=== PATIENT | male | born 1970 | race Caucasian/White ===

== ENCOUNTER 2019-04-22 10:36 | Inpatient (IN) | payer BC, OTHER ==
[~2019-04-22] VITALS: Ht 152.4 cm; Wt 58.8 kg
[2019-04-22] MEDS ORDERED: FOLI800C PO (10:55)
[2019-04-22] MEDS ORDERED: BUSP5TA PO (10:55)
[2019-04-22] MEDS ORDERED: ASPI81TA85 PO (10:55)
[2019-04-22] MEDS ORDERED: FLUD0.1T PO (10:55)
[2019-04-22 11:31] LABS: HEMATOCRIT 46.2 % (42.0-52.0); HEMOGLOBIN 15.5 g/dl (13.5-17.5); MEAN CORPUSCULAR HEMOGLOBIN 30.8 pg (27.0-33.0); MEAN CORPUSCULAR HGB CONC 33.5 g/dl (32.0-36.5); MEAN CORPUSCULAR VOLUME 91.8 fl (80.0-96.0); PLATELET COUNT, AUTOMATED 235 10^3/uL (150-450); RED BLOOD COUNT 5.03 10^6/uL (4.30-6.10); WHITE BLOOD COUNT 6.5 10^3/uL (4.0-10.0)
[2019-04-22 12:09] LABS: AMPHETAMINES LEVEL URINE NEGATIVE (NEGATIVE); BARBITURATES URINE NEGATIVE (NEGATIVE); BENZODIAZEPINES URINE NEGATIVE (NEGATIVE); CANNABINOIDS URINE POSITIVE (NEGATIVE); COCAINE METABOLITE URINE NEGATIVE (NEGATIVE); METHADONE URINE NEGATIVE (NEGATIVE); OPIATES URINE NEGATIVE (NEGATIVE); PHENCYCLIDINE URINE NEGATIVE (NEGATIVE)
[2019-04-22] MEDS ORDERED: MECL-86 PO (12:16)
[2019-04-22] MEDS ORDERED: FOLI0.8T PO (12:16)
[2019-04-22] MEDS ORDERED: REFR0.5D8 OU (12:16)
[2019-04-22 12:18] LABS: ACETAMINOPHEN LEVEL < 2.0 UG/ML (10.0-30.0); ALBUMIN 4.5 GM/DL (3.2-5.2); ALT/SGPT 16 U/L (12-78); BILIRUBIN,DIRECT 0.1 MG/DL (0.0-0.2); BILIRUBIN,TOTAL 0.4 MG/DL (0.2-1.0); BLOOD UREA NITROGEN 11 MG/DL (7-18); CALCIUM LEVEL 9.1 MG/DL (8.5-10.1); CARBON DIOXIDE LEVEL 28 MEQ/L (21-32); CHLORIDE LEVEL 108 MEQ/L (98-107); ETHYL ALCOHOL (ETHANOL) < 0.003 % (0.000-0.010); GLOMERULAR FILTRATION RATE > 60.0 (>60); GLUCOSE, FASTING 98 MG/DL (70-100); POTASSIUM SERUM 4.1 MEQ/L (3.5-5.1); SODIUM LEVEL 141 MEQ/L (136-145); TOTAL PROTEIN 7.9 GM/DL (6.4-8.2)
[2019-04-22] MEDS ORDERED: MOM 30ML SUSPENSION UDC PO PRN (13:00)
[2019-04-22] MEDS ORDERED: ACETAMINOPHEN TAB 650MG DOSE (2X325MG) PO PRN (13:00)
[2019-04-22] MEDS ORDERED: MAALOX 30 ML SUSP *UDC PO PRN (13:00)
[2019-04-22] MEDS ORDERED: traZODone 50 MG TAB PO PRN (13:00)
[2019-04-22] MEDS: SERTRALINE HCL 50 MG TAB PO SCH (13:46)
[2019-04-22] MEDS: busPIRone 5 MG TAB PO SCH (21:40)
--- NOTE | 2019-04-22 22:03 | ECGEPIP ---
[facility] - ED Test Date: 2019-04-22 Pat Name: KAYLEEN SHOOK Department: Room: [place] [address] Gender: Male Icu Specialist: YULI : 1970 Requested By: SPRING Johnson Order Number: [id number] Reading MD: Deangelo Blankenship Measurements Intervals [place] Rate: 60 P: 77 PA: 194 QRS: QRSD: 91 T: 52 QT: 414 QTc: 414 Interpretive Statements ELECTRONIC ATRIAL PACEMAKER NO PRIORS FOR COMPARISON Electronically Signed on 04-22-2019 22:02:33 EDT by Deangelo Blankenship
[2019-04-23 06:39] VITALS: BP 121/82
[2019-04-23] MEDS: SERTRALINE HCL 50 MG TAB PO SCH (09:33)
[2019-04-23] MEDS: FOLIC ACID 1 MG TAB PO SCH (09:33)
[2019-04-23] MEDS: FLUDROCORTISONE ACETATE 0.1 MG TAB PO SCH (09:33)
[2019-04-23] MEDS: busPIRone 5 MG TAB PO SCH ×2 (09:34→21:13)
[2019-04-23] MEDS: ASPIRIN 81 MG ENTERIC TAB PO SCH (10:36)
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
--- NOTE | 2019-04-23 14:18 | HPEPDOC ---
[facility] Medical History & Physical Date of Admission Apr 23, 2019 Date of Service: Apr 23, 2019 History and Physical Chief complaint: Tried to comment suicide History of present illness: This is the 29-year-old male with no significant medical history, comes to the psychiatric unit and we have been consulted for medical reasons. The patient said that he tried to commit suicide. states that he has a lot of stressors and suffers from depression, but does not take any medications. He currently has been admitted to the psychiatric facility and the management will be as per him. He denies any shortness of breath, any chest pain, any headache. He states that he does not have any intentions of hurting himself or anybody else at this point of time. Family history. Hypertension. Social history. Occasional smoker. Denies any drug abuse. Denies any recreational drug use. Past medical history : bradycardia with pacemaker placement 1994 and lead change Past surgical history : Pacemaker Review of systems. Pertinent positive findings as per HPI and is negative PHYSICAL EXAMINATION: General: The patient is awake, alert, oriented x3, sitting up in the bed in no apparent distress. Head and Neck Exam: Extraocular muscles intact. Pupils equally round and reactive to light. Mucous membranes are moist. Neck is supple. There is no jugular venous distention (JVD). Cardiovascular: S1 and S2, regular rate. No real edema Respiratory: Clear auscultation Abdomen: Soft. Positive bowel sounds. Nontender. No organomegaly. Genitourinary: Deferred Musculoskeletal: Clubbing of the fingernails, no cyanosis was noted. Central Nervous System (WATERSHED TENDER): No focal deficit. Power is 5/5 in all extremities. Vital Signs Date Time Temp Pulse Resp B/P (MAP) Pulse Ox O2 Delivery O2 Flow Rate FiO2 04/23/19 06:39 99.2 60 20 121/82 (95) Current Medications Medications (Trade) Dose Ordered Sig/Jose Route PRN Reason Start Time Stop Time Status Last Admin Dose Admin Aspirin (Ecotrin) 81 mg DAILY PO 04/23/19 09:00 04/23/19 10:36 81 MG Buspirone HCl (Buspar) 5 mg BID PO 04/22/19 21:00 04/23/19 09:34 5 MG Fludrocortisone Acetate (Florinef) 0.1 mg DAILY PO 04/23/19 09:00 04/23/19 09:33 0.1 MG Folic Acid (Folic Acid) 1 mg DAILY PO 04/23/19 09:00 04/23/19 09:33 1 MG Sertraline HCl (Zoloft) 50 mg DAILY PO 04/22/19 09:00 04/23/19 09:33 50 MG Assessment and plan This is a 49-year-old male was been admitted to the psychiatric facility for suicide attempt. And we have been consulted for medical management. 1. Suicide attempt. Management is per psychiatry. 2. Sick sinus syndrome. Patient is status post pacemaker states that he has had lead changes. Denies any chest pain. Outpatient follow-up Diet as per psychiatric We will see the patient if required, and please reconsult for that. Thank so much for consulting us on this patient Vital Signs Vital Signs Date Time Temp Pulse Resp B/P (MAP) Pulse Ox O2 Delivery O2 Flow Rate FiO2 04/23/19 06:39 99.2 60 20 121/82 (95) 04/22/19 11:14 Room Air 04/22/19 10:36 100 Home Medications Scheduled Aspirin (Aspir 81) 81 Mg Tablet.dr, 81 MG PO DAILY Buspirone HCl (Buspirone HCl) 5 Mg Tablet, 5 MG PO BID Fludrocortisone Acetate (Fludrocortisone Acetate) 0.1 Mg Tablet, 0.1 MG PO DAILY Folic Acid (Folic Acid) 0.8 Mg Tablet, 800 MCG PO DAILY Scheduled PRN Carboxymethylcellulose Sodium (Refresh Tears) 15 Ml Drops, 1 DROP OU QID PRN for DRY EYES Meclizine HCl (Meclizine HCl) 25 Mg Tablet, 25 MG PO TID PRN for DIZZINESS Allergies Coded Allergies: No Known Allergies (Verified Allergy, Unknown, 04/22/19) losartan (Verified Adverse Reaction, Unknown, DIZZINESS, 04/22/19) A-FIB/CHADSVASC A-FIB History Current/History of A-Fib/PAF?: No Current PO Anticoag Therapy: No THIERRY GARCIA MD Apr 23, 2019 14:18
[2019-04-23 18:00] VITALS: BP 134/74
[2019-04-24 06:00] VITALS: BP 143/74
[2019-04-24] MEDS: SERTRALINE HCL 50 MG TAB PO SCH (08:47)
[2019-04-24] MEDS: busPIRone 5 MG TAB PO SCH ×2 (08:47→21:38)
[2019-04-24] MEDS: FLUDROCORTISONE ACETATE 0.1 MG TAB PO SCH (08:47)
[2019-04-24] MEDS: FOLIC ACID 1 MG TAB PO SCH (08:47)
[2019-04-24] MEDS: ASPIRIN 81 MG ENTERIC TAB PO SCH (08:47)
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
[2019-04-24] MEDS: POLYVINYL ALCOHOL OPHTH SOLN 15 ML(LIQUITEARS) OU PRN ×2 (13:06→17:49)
[2019-04-24 18:18] VITALS: BP 154/84
[2019-04-25 06:31] VITALS: BP 132/79
[2019-04-25] MEDS: POLYVINYL ALCOHOL OPHTH SOLN 15 ML(LIQUITEARS) OU PRN ×2 (07:59→11:24)
[2019-04-25] MEDS: busPIRone 5 MG TAB PO SCH ×2 (07:59→20:29)
[2019-04-25] MEDS: SERTRALINE HCL 50 MG TAB PO SCH (07:59)
[2019-04-25] MEDS: FOLIC ACID 1 MG TAB PO SCH (07:59)
[2019-04-25] MEDS: ASPIRIN 81 MG ENTERIC TAB PO SCH (07:59)
[2019-04-25] MEDS: FLUDROCORTISONE ACETATE 0.1 MG TAB PO SCH (08:00)
--- NOTE | 2019-04-25 15:46 | MHIPN ---
DATE OF SERVICE: 04/25/2019 The patient today states that he is feeling good. He says he is not feeling depressed at all. His complaint, though, is that he is still not sleeping good, and he did try the trazodone last night. He says he is not suicidal. MENTAL STATUS EXAMINATION: He is alert and oriented times three. Eye contact is fairly good. Psychomotor activity is normal. He is verbally spontaneous. There is no formal thought disorder noted, and his mood is good. Affect is full range and appropriate. He is not psychotic, suicidal, or homicidal. Concentration is fair. Memory intact. Insight and judgment is fair. DIAGNOSES: Unspecified depressive disorder, rule out posttraumatic stress disorder (PTSD), and cannabis use disorder. TREATMENT PLAN: At this point, will continue to monitor the patient for continued elevation and stabilization of his mood and for continued resolution of any suicidal ideations.
[2019-04-25 18:07] VITALS: BP 133/86
[2019-04-25] MEDS: traZODone 100 MG TAB PO PRN (21:53)
[2019-04-26 06:02] VITALS: BP 132/77
[2019-04-26] MEDS: POLYVINYL ALCOHOL OPHTH SOLN 15 ML(LIQUITEARS) OU PRN ×2 (06:20→11:04)
[2019-04-26] MEDS: SERTRALINE HCL 50 MG TAB PO SCH (09:05)
[2019-04-26] MEDS: ASPIRIN 81 MG ENTERIC TAB PO SCH (09:05)
[2019-04-26] MEDS: FLUDROCORTISONE ACETATE 0.1 MG TAB PO SCH (09:05)
[2019-04-26] MEDS: busPIRone 5 MG TAB PO SCH ×2 (09:05→20:29)
[2019-04-26] MEDS: FOLIC ACID 1 MG TAB PO SCH (09:07)
[2019-04-26] MEDS ORDERED: SERTRALINE HCL 50 MG TAB PO ONE (09:45)
[2019-04-26 18:00] VITALS: BP 134/89
[2019-04-26] MEDS: traZODone 100 MG TAB PO PRN (23:42)
[2019-04-26] MEDS: hydrOXYzine 50 MG TAB PO PRN (23:42)
[2019-04-27 06:42] VITALS: BP 115/70
[2019-04-27] MEDS: busPIRone 5 MG TAB PO SCH ×2 (08:40→20:19)
[2019-04-27] MEDS: ASPIRIN 81 MG ENTERIC TAB PO SCH (08:40)
[2019-04-27] MEDS: SERTRALINE 100 MG TAB PO SCH (08:40)
[2019-04-27] MEDS: FOLIC ACID 1 MG TAB PO SCH (08:40)
[2019-04-27] MEDS: POLYVINYL ALCOHOL OPHTH SOLN 15 ML(LIQUITEARS) OU PRN ×3 (08:40→22:58)
[2019-04-27] MEDS: FLUDROCORTISONE ACETATE 0.1 MG TAB PO SCH (08:40)
[2019-04-27 18:06] VITALS: BP 128/76
[2019-04-27] MEDS: hydrOXYzine 50 MG TAB PO PRN (20:19)
[2019-04-27 20:23] VITALS: BP 154/84
[2019-04-27] MEDS: traZODone 100 MG TAB PO PRN (22:57)
[2019-04-28 06:00] VITALS: BP 128/61
[2019-04-28] MEDS: FLUDROCORTISONE ACETATE 0.1 MG TAB PO SCH (08:55)
[2019-04-28] MEDS: busPIRone 5 MG TAB PO SCH ×2 (08:55→20:12)
[2019-04-28] MEDS: FOLIC ACID 1 MG TAB PO SCH (08:55)
[2019-04-28] MEDS: hydrOXYzine 50 MG TAB PO PRN ×2 (08:55→22:56)
[2019-04-28] MEDS: SERTRALINE 100 MG TAB PO SCH (08:55)
[2019-04-28] MEDS: ASPIRIN 81 MG ENTERIC TAB PO SCH (08:55)
[2019-04-28] MEDS: POLYVINYL ALCOHOL OPHTH SOLN 15 ML(LIQUITEARS) OU PRN ×3 (08:55→19:47)
[2019-04-28 18:06] VITALS: BP 106/59
[2019-04-28] MEDS: traZODone 100 MG TAB PO PRN (22:56)
[2019-04-29 06:00] VITALS: BP 119/68
[2019-04-29] MEDS: busPIRone 5 MG TAB PO SCH ×2 (08:39→20:48)
[2019-04-29] MEDS: FOLIC ACID 1 MG TAB PO SCH (08:39)
[2019-04-29] MEDS: SERTRALINE 100 MG TAB PO SCH (08:39)
[2019-04-29] MEDS: FLUDROCORTISONE ACETATE 0.1 MG TAB PO SCH (08:39)
[2019-04-29] MEDS: ASPIRIN 81 MG ENTERIC TAB PO SCH (08:39)
[2019-04-29] MEDS: POLYVINYL ALCOHOL OPHTH SOLN 15 ML(LIQUITEARS) OU PRN ×2 (08:39→17:44)
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
[2019-04-29 18:00] VITALS: BP 118/85
[2019-04-30 06:41] VITALS: BP 124/80
[2019-04-30] MEDS: busPIRone 5 MG TAB PO SCH ×2 (08:18→20:58)
[2019-04-30] MEDS: ASPIRIN 81 MG ENTERIC TAB PO SCH (08:19)
[2019-04-30] MEDS: FOLIC ACID 1 MG TAB PO SCH (08:19)
[2019-04-30] MEDS: FLUDROCORTISONE ACETATE 0.1 MG TAB PO SCH (08:19)
[2019-04-30] MEDS: SERTRALINE 100 MG TAB PO SCH (08:19)
[2019-04-30] MEDS: POLYVINYL ALCOHOL OPHTH SOLN 15 ML(LIQUITEARS) OU PRN ×2 (08:20→11:50)
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
[2019-04-30 18:00] VITALS: BP 114/73
[2019-04-30] MEDS: hydrOXYzine 50 MG TAB PO PRN (20:58)
[2019-04-30] MEDS: traZODone 100 MG TAB PO PRN (20:58)
[2019-05-01 06:47] VITALS: BP 127/79
[2019-05-01] MEDS: ASPIRIN 81 MG ENTERIC TAB PO SCH (08:21)
[2019-05-01] MEDS: busPIRone 5 MG TAB PO SCH (08:21)
[2019-05-01] MEDS: FLUDROCORTISONE ACETATE 0.1 MG TAB PO SCH (08:21)
[2019-05-01] MEDS: POLYVINYL ALCOHOL OPHTH SOLN 15 ML(LIQUITEARS) OU PRN (08:21)
[2019-05-01] MEDS: FOLIC ACID 1 MG TAB PO SCH (08:21)
[2019-05-01] MEDS: SERTRALINE 100 MG TAB PO SCH (08:21)
[2019-05-01] MEDS ORDERED: TRAZ10TA PO (08:53)
[2019-05-01] MEDS ORDERED: BUSP5TA PO (08:53)
[2019-05-01] MEDS ORDERED: HYDRO50TAB PO (08:53)
[2019-05-01] MEDS ORDERED: SERT-138 PO (08:53)
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
== END 2019-05-01 10:25 | disposition home or self-care (01) | DRG 754 ==
LOC: M ED 10:36 → M ED INP 12:54 → M PSY 13:56
PROVIDERS: ADMIT Psychiatry & Neurology Psychiatry; ATTEND Psychiatry & Neurology Psychiatry
DX: F32.9 Major depressive disorder, single episode, unspecified (principal); F12.20 Cannabis dependence, uncomplicated; F43.10 Post-traumatic stress disorder, unspecified; F10.10 Alcohol abuse, uncomplicated; Z62.810 Personal history of physical and sexual abuse in childhood; F17.200 Nicotine dependence, unspecified, uncomplicated; Z79.82 Long term (current) use of aspirin; Z79.899 Other long term (current) drug therapy; Z95.0 Presence of cardiac pacemaker

== ENCOUNTER 2021-01-29 14:45 | Emergency (ER) | payer BC ==
[~2021-01-29] VITALS: Ht 172.7 cm; Wt 81.8 kg
[~2021-01-29 14:45] MED LIST: ASPI81TA86 PO; BUSP5TA PO; FLUD0.1T PO; FOLI800C PO; FOLI800T3 PO; HYDR1TAB33 PO; MECL-86 PO; REFR0.5D8 OU; SERT-138 PO; TRAZ1TAB12 PO
[2021-01-29 16:31] VITALS: BP 164/89
== END 2021-01-29 16:33 | disposition home or self-care (01) ==
LOC: M ED 14:45
DX: F33.9 Major depressive disorder, recurrent, unspecified (principal); I10 Essential (primary) hypertension; E11.9 Type 2 diabetes mellitus without complications; E78.5 Hyperlipidemia, unspecified; I25.10 Atherosclerotic heart disease of native coronary artery without angina pectoris; Z79.899 Other long term (current) drug therapy; Z79.82 Long term (current) use of aspirin; Z88.8 Allergy status to other drugs, medicaments and biological substances

== ENCOUNTER → 2022-04-26 | Outpatient (CLI) | payer BC ==
[~2022-04-26] MED LIST changes: +ARIP1TAB4 PO; +BAYE81TA10 PO; +VITMTA PO; +ZOLO100T PO
== END ==
LOC: M LABSMTC 09:05
PROVIDERS: ATTEND Anesthesiology
DX: Z11.52 Encounter for screening for COVID-19 (principal); Z20.822 Contact with and (suspected) exposure to COVID-19

== ENCOUNTER 2022-04-28 12:15 | Day surgery (SDC) | payer BC ==
[~2022-04-28] VITALS: Ht 172.7 cm; Wt 74.4 kg
[~2022-04-28 12:15] MED LIST changes: +ceFAZolin SOD 2 GM in IV 1 EA IV ONE
[2022-04-28] MEDS ORDERED: LR 1,000 ML IV SCH (12:35)
[2022-04-28] MEDS ORDERED: VANCOMYCIN 1000MG/20ML VIAL As Ordered ONE (14:18)
[2022-04-28] MEDS ORDERED: LIDOCAINE 1% SDV 30ML VIAL As Ordered ONE (14:18)
[2022-04-28] MEDS ORDERED: BACITRACIN OINTMENT 30GM TUBE As Ordered ONE (14:20)
[2022-04-28] MEDS ORDERED: MIDAZOLAM INJ 2MG/2ML VIAL (J2250 PER 1MG) As Ordered ONE (14:36)
[2022-04-28] MEDS ORDERED: fentaNYL 100 MCG/2 ML INJECTION As Ordered ONE (14:37)
[2022-04-28] MEDS ORDERED: propofoL 200 MG/20 ML VIAL As Ordered ONE ×3 (14:44→15:43)
[2022-04-28] MEDS ORDERED: ONDANSETRON 4MG 2ML VIAL As Ordered ONE (14:56)
[2022-04-28] MEDS ORDERED: dexameTHASONE 4 MG/ML 1ML VIAL (J1100 PER 1MG) As Ordered ONE (14:57)
[2022-04-28 15:58] VITALS: BP 116/66
== END 2022-04-28 16:26 | disposition home or self-care (01) ==
LOC: M SDC 12:15
PROVIDERS: ATTEND Internal Medicine Cardiovascular Disease
DX: Z45.010 Encounter for checking and testing of cardiac pacemaker pulse generator [battery] (principal); R55 Syncope and collapse; T82.111A Breakdown (mechanical) of cardiac pulse generator (battery), initial encounter; Y71.2 Prosthetic and other implants, materials and accessory cardiovascular devices associated with adverse incidents; I51.9 Heart disease, unspecified; F41.9 Anxiety disorder, unspecified; F32.A Depression, unspecified; R07.9 Chest pain, unspecified; Z79.899 Other long term (current) drug therapy; Z87.891 Personal history of nicotine dependence
CPT/HCPCS: 33228; C1785; J0690; J1100; J2250; J2405; J3010